=== PATIENT | female | born 1970 | race American Indian/Alaskan Native ===

== ENCOUNTER 2018-03-23 12:13 | Emergency (ER) | payer SELFPAY ==
--- NOTE | 2018-03-23 14:45 | Emergency Department Report ---
ED Lower Extremity HPI - General Chief Complaint: Extremity Injury, Lower Stated Complaint: FOOT PAIN/SWOLLEN Time Seen by Provider: 03/23/18 14:30 Source: patient Mode of arrival: Ambulatory Limitations: No Limitations - History of Present Illness Initial Comments: Ms. Mckeon presents after foot injury. On March 11, she underwent pedicure. She noticed moderate pain while the billing and quality technician was brushing her feet. Immediately after pedicure she noticed several abrasions on top of her foot. T abrasions are healing appropriately. However she attempted to obtain a refund for the services. The management of the nail salon requested ED evaluation for appropriate compensation. Complaint: foot injury -: Sudden - Related Data Allergies Allergy/AdvReac Type Severity Reaction Status Date / Time No Known Allergies Allergy Unverified 03/23/18 12:18 ED Review of Systems ROS: Stated complaint: FOOT PAIN/SWOLLEN Other details as noted in HPI Constitutional: denies: fever, malaise Skin: rash, lesions. denies: change in hair/nails Neurological: denies: weakness, paresthesias ED Past Medical Hx - Past Medical History Previous Medical History?: No - Surgical History Past Surgical History?: No - Social History Smoking Status: Never Smoker ED Physical Exam - General Limitations: No Limitations General appearance: alert, in no apparent distress - Eye Eye exam: Present: normal appearance - Neurological Exam Neurological exam: Present: alert, altered - Psychiatric Psychiatric exam: Present: normal affect, normal mood - Skin Skin exam: Present: other (well-healing abrasions of the dorsal region of the midfoot bilaterally) ED Course Vital Signs 03/23/18 12:19 Temperature 98.8 F Pulse Rate 99 H Respiratory 20 Rate Blood Pressure 130/71 O2 Sat by Pulse 99 Oximetry ED Lower Extremity MDM - Medical Decision Making Bilateral feet Abrasions due to overzealous scrubbing during pedicure. Abrasions are healing appropriately. I recommended antibiotic ointment. Critical care attestation.: If time is entered above; I have spent that time in minutes in the direct care of this critically ill patient, excluding procedure time. ED Disposition Clinical Impression: Abrasion of foot without infection Disposition: [id number] TO HOME OR SELFCARE Is pt being admited?: No Does the pt Need Aspirin: No Condition: Stable Instructions: Abrasion (ED) Additional Instructions: Your abrasions and skin irritation were caused by the scrubbing during your pedicure. Please only scrub the bottom of the feet. Time of Disposition: 14:47
[2018-03-23 14:59] VITALS: BP 128/68
== END 2018-03-23 14:54 | disposition home or self-care (01) ==
LOC: ED 12:13
DX: S90.812A Abrasion, left foot, initial encounter (principal); S90.811A Abrasion, right foot, initial encounter; X58.XXXA Exposure to other specified factors, initial encounter; Y93.89 Activity, other specified; Y92.89 Other specified places as the place of occurrence of the external cause; Y99.8 Other external cause status
CPT/HCPCS: 99282